=== PATIENT | male | born 1950 | race Caucasian/White ===

== ENCOUNTER → 2020-02-25 11:19 | Outpatient (BNVA) | payer MEDICARE, OTHER, SELFPAY | PROVIDERS: Visit Provider Family Medicine | DX: E78.5 Hyperlipidemia, unspecified (principal); M1A.9XX0 Chronic gout, unspecified, without tophus (tophi); I10 Essential (primary) hypertension | CPT/HCPCS: 80053; 80061; 84550; 85025 ==

== ENCOUNTER → 2020-12-19 11:25 | Outpatient (BNVA) | payer MEDICARE, OTHER, SELFPAY | PROVIDERS: Visit Provider Nurse Practitioner Family | DX: M1A.9XX0 Chronic gout, unspecified, without tophus (tophi) (principal); E78.5 Hyperlipidemia, unspecified; Z12.5 Encounter for screening for malignant neoplasm of prostate; N18.9 Chronic kidney disease, unspecified; E11.9 Type 2 diabetes mellitus without complications; I12.9 Hypertensive chronic kidney disease with stage 1 through stage 4 chronic kidney disease, or unspecified chronic kidney disease | CPT/HCPCS: 80053; 80061; 83036; 84153; 84550; 84560; 85025 ==

== ENCOUNTER → 2021-11-16 10:07 | Outpatient (BNVA) | payer MEDICARE, OTHER, SELFPAY | PROVIDERS: Visit Provider Nurse Practitioner Family | DX: N18.9 Chronic kidney disease, unspecified (principal); M1A.9XX0 Chronic gout, unspecified, without tophus (tophi); I10 Essential (primary) hypertension; E11.9 Type 2 diabetes mellitus without complications; E78.5 Hyperlipidemia, unspecified; G47.33 Obstructive sleep apnea (adult) (pediatric) | CPT/HCPCS: 80053; 80061; 82043; 83036; 84443; 84550; 85025 ==

== ENCOUNTER → 2022-08-31 10:57 | Outpatient (BNVA) | payer MEDICARE, OTHER, SELFPAY | PROVIDERS: Visit Provider Nurse Practitioner Family | DX: I10 Essential (primary) hypertension (principal); E11.9 Type 2 diabetes mellitus without complications; Z12.5 Encounter for screening for malignant neoplasm of prostate; E78.5 Hyperlipidemia, unspecified; M1A.9XX0 Chronic gout, unspecified, without tophus (tophi); R07.81 Pleurodynia; N18.9 Chronic kidney disease, unspecified; H91.90 Unspecified hearing loss, unspecified ear | CPT/HCPCS: 80053; 80061; 83036; 84443; 85025; G0103 ==

== ENCOUNTER → 2023-03-07 09:30 | Outpatient (BNVA) | payer MEDICARE, OTHER, SELFPAY | PROVIDERS: PCP Nurse Practitioner Family; Visit Provider Nurse Practitioner Family | DX: I10 Essential (primary) hypertension (principal); M1A.9XX0 Chronic gout, unspecified, without tophus (tophi); E11.9 Type 2 diabetes mellitus without complications | CPT/HCPCS: 80053; 80061; 82043; 83036; 84550; 85025 ==

== ENCOUNTER → 2023-10-30 10:48 | Outpatient (BNVA) | payer MEDICARE, OTHER, SELFPAY | PROVIDERS: PCP Nurse Practitioner Family; Visit Provider Family Medicine | DX: I10 Essential (primary) hypertension (principal); Z12.5 Encounter for screening for malignant neoplasm of prostate; E11.9 Type 2 diabetes mellitus without complications; N18.9 Chronic kidney disease, unspecified | CPT/HCPCS: 80053; 80061; 83036; 84443; 85025; G0103 ==

== ENCOUNTER → 2024-11-26 10:18 | Outpatient (BNVA) | payer MEDICARE, OTHER, SELFPAY | PROVIDERS: PCP Nurse Practitioner Family; Visit Provider Nurse Practitioner Family | DX: M1A.9XX0 Chronic gout, unspecified, without tophus (tophi) (principal); I10 Essential (primary) hypertension; E11.9 Type 2 diabetes mellitus without complications; E78.5 Hyperlipidemia, unspecified; Z12.5 Encounter for screening for malignant neoplasm of prostate; N18.9 Chronic kidney disease, unspecified | CPT/HCPCS: 80053; 80061; 83036; 84443; 84550; 85025; G0103 ==

== ENCOUNTER 2025-05-04 17:06 | Emergency (ER) | payer MEDICARE, OTHER, SELFPAY ==
[2025-05-04 17:23] VITALS: BP 144/88; PULSE 81; TEMP 36.4; O2SAT 96; BMI 29.5
--- NOTE | 2025-05-04 18:15 | XRR_ITS ---
PROCEDURE INFORMATION: Exam: XR Chest Exam date and time: 05/04/2025 6:20 PM Age: 74 years old Clinical indication: Other: Syncope TECHNIQUE: Imaging protocol: Radiologic exam of the chest. Views: 1 view. COMPARISON: No relevant prior studies available. FINDINGS: Lungs: Unremarkable. No consolidation. Pleural spaces: Unremarkable. No pleural effusion. No pneumothorax. Heart/Mediastinum: Unremarkable. No cardiomegaly. Bones/joints: Unremarkable. XR/XR chest 1V portable [id number] IMPRESSION: No acute findings.
--- NOTE | 2025-05-04 18:16 | ECG_ITS ---
[facility] Test Date: 2025-05-04 Pat Name: Romeo Polo Department: Room: Gender: Male Grinder: : 1950 Requested By: Christian Cotto Order Number: [id number] Susan MD: ROCIO BUNCH Measurements Intervals [place] Rate: 79 P: 24 RI: 187 QRS: -11 QRSD: 90 T: 27 QT: 362 QTc: 416 Interpretive Statements SINUS RHYTHM INTERPRETATION BASED ON A DEFAULT AGE OF 40 YEARS No previous ECG available for comparison Electronically Signed On 05-05-2025 22:49:17 CDT by ROCIO BUNCH [id number]
[2025-05-04 18:43] LABS: Basophils # 0.1 10^3/uL (0.0-0.1); Basophils % 0.5 %; Hematocrit 49.7 % (37-53); Lymphocytes # 2.3 10^3/uL (0.8-4.8); Mean Corpuscular HGB Conc 32.8 g/dL (30-55); Mean Corpuscular Hemoglobin 30.5 pg (27-33); Mean Corpuscular Volume 92.9 fl (82-101); Mean Platelet Volume 9.4 fL (7.4-10.4); Monocytes % 8.7 %; Neutrophils # 7.99 10^3/uL (1.8-7.7); Neutrophils % 70.6 %; Nucleated Red Blood Cells % 0 %; Platelet Count 253 10^3/cmm (157-399); Red Blood Count 5.35 10^6/uL (3.85-5.65); Red Cell Distribution Width 13.3 % (12.1-15.1); White Blood Count 11.31 10^3/uL (3.29-11.43)
[2025-05-04] MEDS: sodium chloride 0.9% 1,000 ML 999 ML IV (18:50)
--- NOTE | 2025-05-04 18:51 | ED_ITS ---
HPI - Syncope 2 General: Chief Complaint: Syncope Stated Complaint: passed out Time Seen by Provider: 05/04/25 18:14 History of Present Illness: Patient is a well-appearing 74-year-old male from home seen for what appears to be a syncopal episode. He states that several times in the past he has been sitting, not exerting himself or standing up, and then finds himself on the floor. Most recently several months ago, his witnessed the event where he lost consciousness and fell to the floor. and son were shaking him for roughly 15 seconds before he awoke and was able to speak with them fully. There was no postictal period. He has no history of seizures or heart disease of which she is aware. Today, similarly, he was sitting at the table leaning on his hand when he is told that he lost consciousness. He fell to the ground but does not feel that he struck his head or neck and has no pains associated with it. He had no antecedent chest pain, shortness of breath, diaphoresis, fever, sickness, nausea, vomiting, diarrhea, constipation, dysuria, frequency, or other signs of infection. He states that for the last 15 days he has felt profoundly tired but has been able to perform all his activities of daily living and can walk normal distances without feeling short of breath or having chest pressure or lightheadedness. There are no new medication changes for him. He thinks that 1 time he had kicked fever but has not seen any ticks on him recently nor does he have a rash. Related Data Previous Rx's ?Medication ?Instructions ?Recorded aspirin 81 mg tablet,delayed 81 mg PO DAILY #90 tabs 0 02/22/22 release (Adult Low Dose Aspirin) allopurinol 100 mg tablet See Rx Instructions .Route 1 01/27/24 .COMPLEX #90 tabs allopurinol 300 mg tablet See Rx Instructions .Route 1 01/27/24 .COMPLEX #90 tabs atorvastatin 80 mg tablet See Rx Instructions .Route 1 01/27/24 .COMPLEX #90 tabs olmesartan 20 See Rx Instructions .Route 1 01/27/24 mg-hydrochlorothiazide 12.5 mg .COMPLEX #90 tabs tablet Allergies Allergy/AdvReac Type Severity Reaction Status Date / Time lisinopril Allergy angioedema Verified 05/04/25 17:32 [facility] ED 2 PFSH: Medical History (Updated 05/04/25 @ 22:46 by Christian Clay MD) CKD (chronic kidney disease) Hypertension BELLE (obstructive sleep apnea) Diabetes Gout Dyslipidemia Social History Smoking and tobacco/nicotine status: never used tobacco/nicotine Second hand smoke exposure: No Alcohol intake: never Substance/Drug Use: never Caregiver/support person: Yes Lives independently: Yes Household members: spouse Marital status: service: No Current occupational status: retired Current gender identity: Male Special tino needs: No Physical Exam 2 Const: COMMON NORMALS: no acute distress, patient oriented x3 and alert HENMT: COMMON NORMALS: normocephalic and atraumatic HEAD & SCALP: n ormocephalic and atraumatic Eye: COMMON NORMALS: Equal, round and reactive pupils present, EOMs intact bilaterally and no scleral icterus PUPIL: Yes Equal, round and reactive pupils present Resp: COMMON NORMALS: normal respiratory effort and No retractions Cardio: COMMON NORMALS: regular rate, regular rhythm and No murmurs present (Cardio) RATE: regular rate RHYTHM: regular rhythm GI: COMMON NORMALS: Normal to inspection, nondistended, normoactive bowel sounds present, Soft to palpation and non-tender PALPATION: Yes Soft to palpation Neuro: COMMON NORMALS: patient oriented x3 SENSORIUM/ORIENTATION: Yes alert Skin: COMMON NORMALS: no rashes or lesions noted GENERAL SKIN EXAM: no rashes or lesions noted Course 2 Vital Signs: Vital signs: Vital Signs Temperature 97.6 F 05/04/25 17:23 Pulse Rate 66 05/04/25 23:28 Respiratory Rate 16 05/04/25 23:28 Blood Pressure 132/81 05/04/25 23:28 Pulse Oximetry 96 05/04/25 23:28 Oxygen Delivery Me thod Room Air 05/04/25 20:00 MDM - Syncope Medical Decision Making Patient remained hemodynamically stable throughout ED course. Orthostatic vital signs do not imply orthostasis to be the cause of his syncope. Symptoms do not seem to be exertional. EKG and labs are reassuring. With respect to his profound tiredness, he states that he gets bit by ticks frequently, and though he does not have any rash or history of ticks being latched on for more than a day, I think it reasonable and low risk of harm to give him a prophylactic dose of doxycycline. We discussed that he may be having primary cardiac events such as a non-perfusing dysrhythmia and will consider giving him a Holter monitor to wear, though I recognize that he only has these episodes once every 6 months or so and it would be unlikely to catch another event in the time period during which one typically wears an event monitor. He would like to be discharged and I think this is reasonable. If he has recurrence of symptoms he will return to the emergency department for further workup. Lab Data 05/04/25 18:35 05/04/25 18:35 Radiology Impressions Chest X-Ray 05/04/25 18:15 IMPRESSION: No acute findings. Laboratory Results WBC 11.31 10^3/uL (3.29-11.43) 05/04/25 18:35 RBC 5.35 10^6/uL (3.85-5.65) 05/04/25 18:35 Hgb 16.30 g/dL (11.27-16.99) 05/04/25 18:35 Hct 49.7 % (37-53) 05/04/25 18:35 MCV 92.9 fl (82-101) 05/04/25 18:35 MCH 30.5 pg (27-33) 05/04/25 18:35 MCHC 32.8 g/dL (30-55) 05/04/25 18:35 RDW 13.3 % (12.1-15.1) 05/04/25 18:35 Plt Count 253 10^3/cmm (157-399) 05/04/25 18:35 MPV 9.4 fL (7.4-10.4) 05/04/25 18:35 Neut % (Auto) 70.6 % 05/04/25 18:35 Lymph % (Auto) 20.0 % 05/04/25 18:35 Greer % (Auto) 8.7 % 05/04/25 18:35 Eos % (Auto) 0.0 % 05/04/25 18:35 Baso % (Auto) 0.5 % 05/04/25 18:35 Neut # (Auto) 7.99 10^3/uL (1.8-7.7) H 05/04/25 18:35 Lymph # (Auto) 2.3 10^3/uL (0.8-4.8) 05/04/25 18:35 Greer # (Auto) 1.0 10^3/uL (0.2-0.9) H 05/04/25 18:35 Eos # (Auto) 0.0 10^3/uL (0.0-0.8) 05/04/25 18:35 Baso # (Auto) 0.1 10^3/uL (0.0-0.1) 05/04/25 18:35 Nucleated RBC % (auto) 0 % 05/04/25 18:35 Nucleated RBCs # 0.0 /100WBC 05/04/25 18:35 Sodium 135 mmol/L (136-145) L 05/04/25 18:35 Potassium 4.0 mmol/L (3.5-5.1) 05/04/25 18:35 Chloride 97 mmol/L (98-107) L 05/04/25 18:35 Carbon Dioxide 25 mmol/L (22-29) 05/04/25 18:35 Anion Gap 17.0 (5-19) 05/04/25 18:35 BUN 26 mg/dL (8-23) H 05/04/25 18:35 Creatinine 1.9 mg/dL (0.7-1.2) H 05/04/25 18:35 GFR Calculation Not Reportable 05/04/25 18:35 Glucose 202 mg/dL (65-115) H 05/04/25 18:35 Calculated Osmolality 291 mOsm/kg (285-295) 05/04/25 18:35 Calcium 9.6 mg/dL (8.5-10.5) 05/04/25 18:35 Total Bilirubin 0.6 mg/dL (0.15-1.2) 05/04/25 18:35 AST 19 U/L (0-40) 05/04/25 18:35 ALT 24 U/L (0-41) 05/04/25 18:35 Alkaline Phosphatase 103 U/L (40-130) 05/04/25 18:35 Troponin T Baseline 37 ng/L (0-15) H 05/04/25 18:35 Troponin T 120 Minute 36.66 ng/L (0-15) H 05/04/25 20:25 Delta Troponin T -0.34 ABS# (0-10) L 05/04/25 20:25 Total Protein 7.3 g/dL (6.6-8.7) 05/04/25 18:35 Albumin 4.0 g/dL (3.5-5.2) 05/04/25 18:35 Globulin 3.3 g/dL (1.3-4.6) 05/04/25 18:35 TSH 2.99 uIU/mL (0.27-4.20) 05/04/25 18:35 All radiology interpretation(s) finalized by discharge EKG Data EKG 1: Interpretation: Time?1726?normal sinus rhythm, rate of 79, no ST segment elevation or depression, no T wave inversions, intervals within normal limits. QTc = 416 Discharge Plan Discharge Patient Disposition: Home Clinical Impression: Syncope Condition: Stable Prescriptions: No Action olmesartan-hydrochlorothiazide 20-12.5 mg tablet See Rx Instructions .ROUTE .COMPLEX Qty: 90 1RF Dose Instruction: TAKE ONE TABLET BY MOUTH DAILY Rx Instructions: TAKE ONE TABLET BY MOUTH DAILY allopurinol 300 mg tablet See Rx Instructions .ROUTE .COMPLEX Qty: 90 1RF Dose Instruction: TAKE ONE TABLET BY MOUTH DAILY WITH 100MG TO = 400 MG. Rx Instructions: TAKE ONE TABLET BY MOUTH DAILY WITH 100MG TO = 400 MG. allopurinol 100 mg tablet See Rx Instructions .ROUTE .COMPLEX Qty: 90 1RF Dose Instruction: TAKE ONE TABLET BY MOUTH DAILY. TAKE WITH 300MG TO = 400MG Rx Instructions: TAKE ONE TABLET BY MOUTH DAILY. TAKE WITH 300MG TO = 400MG atorvastatin 80 mg tablet See Rx Instructions .ROUTE .COMPLEX Qty: 90 1RF Dose Instruction: TAKE ONE TABLET BY MOUTH DAILY Rx Instructions: TAKE ONE TABLET BY MOUTH DAILY aspirin [Adult Low Dose Aspirin] 81 mg tablet,delayed release (DR/EC) 81 mg PO DAILY Qty: 90 4RF Discharge Orders: Discharge ED (Routine); Ordered 05/04/25 Ordered By: Christian Clay Referrals: France Gallego FNP [Primary Care Provider, Family Practice] Discharge Diet: Usual diet Discharge Activity: Increase activity as tolerated Patient Instructions: Syncope (ED) Activity Restrictions/Additional Instructions: You passed out today which means that for a brief time you did not have adequate blood flow to your brain. While you have been in the emergency department we have not noticed anything wrong with your heart or blood. It is most likely that 1 of 2 things occurred: Either you had a vasovagal response where you had short-lived dilation of your veins causing low blood pressure to the brain or else your heart did not be appropriately during the time you are passed out. If this happens again, please return to the emergency department and we will monitor your heart more thoroughly to see if you need a pacemaker to avoid passing out in the future. At this time, there is no evidence of heart attack or other emergency requiring hospitalization Print Language: Luxembourger Coding Level of Care Code ED Management Internship for Christopher Nobles
[2025-05-04 19:00] VITALS: BP 117/71; PULSE 74; RESP 16; O2SAT 94
[2025-05-04 19:21] LABS: Troponin(5th) Baseline 37 ng/L (0-15)
--- NOTE | 2025-05-04 19:24 | PC.NURSE ---
this nurse assumed pt care from Brianne WITT at 1900.
[2025-05-04 19:30] LABS: Alanine Aminotransferase 24 U/L (0-41); Alkaline Phosphatase 103 U/L (40-130); Aspartate Amino Transferase 19 U/L (0-40); Blood Urea Nitrogen 26 mg/dL (8-23); Calcium 9.6 mg/dL (8.5-10.5); Carbon Dioxide 25 mmol/L (22-29); Chloride 97 mmol/L (98-107); Creatinine Clr Calc Pharmacy 43.2623; Globulin 3.3 g/dL (1.3-4.6); Glucose 202 mg/dL (65-115); Osmolality Calculated 291 mOsm/kg (285-295); Sodium 135 mmol/L (136-145); Thyroid Stimulating Hormone 2.99 uIU/mL (0.27-4.20); Total Bilirubin 0.6 mg/dL (0.15-1.2); Total Protein 7.3 g/dL (6.6-8.7)
[2025-05-04 20:00] VITALS: BP 112/70; PULSE 67; RESP 16; O2SAT 96
[2025-05-04 20:46] LABS: Troponin 5 2HR 36.66 ng/L (0-15)
[2025-05-04 20:47] LABS: Troponin 5 2HR Delta -0.34 ABS# (0-10)
[2025-05-04 21:53] VITALS: BP 123/76; PULSE 68; RESP 14; O2SAT 97
[2025-05-04 23:28] VITALS: BP 132/81; PULSE 66; RESP 16; O2SAT 96
== END 2025-05-04 23:27 | disposition home or self-care (01) ==
PROVIDERS: Emergency Provider Student in an Organized Health Care Education/Training Program; PCP Nurse Practitioner Family
DX: R55 Syncope and collapse (principal); Z79.82 Long term (current) use of aspirin; E78.5 Hyperlipidemia, unspecified; E11.22 Type 2 diabetes mellitus with diabetic chronic kidney disease; I12.9 Hypertensive chronic kidney disease with stage 1 through stage 4 chronic kidney disease, or unspecified chronic kidney disease; N18.9 Chronic kidney disease, unspecified
CPT/HCPCS: 36415; 71045; 80053; 84443; 84484; 85025; 93005; 99285; J7030

== ENCOUNTER → 2025-06-17 12:42 | Outpatient (BNVA) | payer MEDICARE, OTHER, SELFPAY | PROVIDERS: PCP Nurse Practitioner Family; Visit Provider Nurse Practitioner Family | DX: E11.9 Type 2 diabetes mellitus without complications (principal); E78.5 Hyperlipidemia, unspecified | CPT/HCPCS: 80053; 80061; 82043; 83036; 84443; 85025 ==